=== PATIENT | female | born 1985 | race Caucasian/White ===

== ENCOUNTER → 2020-07-17 | Outpatient (CLI) | payer MEDICAID ==
[~2020-07-17] VITALS: Ht 165.1 cm; Wt 80.5 kg
[~2020-07-17] MED LIST: PLEASE ENTER ALLERGIES MC SCH; PLEASE ENTER HEIGHT AND WEIGHT MC SCH
[2020-07-17 11:14] LABS: BASOPHILS # (AUTO) 0.01 x10^3/uL (0-0.1); BASOPHILS % (AUTO) 0 % (0-1); EOSINOPHILS # (AUTO) 0.04 x10^3/uL (0-0.4); EOSINOPHILS % (AUTO) 1 % (1-7); LYMPHOCYTES # (AUTO) 1.43 x10^3/uL (1-3.4); LYMPHOCYTES % (AUTO) 17 % (22-44); MD NO; MEAN CORPUSCULAR HEMOGLOBIN 32.1 pg (27.0-34.8); MEAN CORPUSCULAR HGB CONC 32.9 g/dL (32.4-35.8); MEAN CORPUSCULAR VOLUME 97.6 fL (80-100); MEAN PLATELET VOLUME 8.3 fL (7.4-10.4); MONOCYTES # (AUTO) 0.52 x10^3/uL (0.2-0.8); MONOCYTES % (AUTO) 6 % (2-9); NEUTROPHILS # (AUTO) 6.37 x10^3/uL (1.8-6.8); NEUTROPHILS % (AUTO) 76 % (42-75); PLATELET COUNT 206 x10^3/uL (130-400); RED BLOOD COUNT 3.97 x10^6/uL (3.82-5.3); RED CELL DISTRIBUTION WIDTH 13.1 % (9.6-15.2)
[2020-07-17 11:20] LABS: MICROSCOPIC NOT IND
[2020-07-17 11:25] LABS: ALBUMIN 2.8 g/dL (3.4-5.0); ANION GAP 10 mmol/L (5-15); CALCIUM 8.6 mg/dL (8.5-10.1); CHLORIDE 112 mmol/L (98-107)
[2020-07-17 11:33] LABS: ALANINE AMINOTRANSFERASE 13 U/L (12-78); ALKALINE PHOSPHATASE 106 U/L (45-117); BILIRUBIN,TOTAL 0.5 mg/dL (0.2-1.0); CREATININE 0.48 mg/dL (0.55-1.02); TOTAL PROTEIN 6.6 g/dL (6.4-8.2)
== END | disposition home or self-care (01) ==
LOC: LDOP 10:29
PROVIDERS: ATTEND Obstetrics & Gynecology
DX: O60.03 Preterm labor without delivery, third trimester (principal); Z3A.32 32 weeks gestation of pregnancy
CPT/HCPCS: 36415; 80053; 81003; 82570; 84156; 84550; 85025; 87086

== ENCOUNTER → 2020-08-25 | Outpatient (CLI) | payer MEDICAID | END | disposition home or self-care (01) | LOC: STAR 08:32 | PROVIDERS: ATTEND Obstetrics & Gynecology | DX: Z01.812 Encounter for preprocedural laboratory examination (principal); Z20.828 Contact with and (suspected) exposure to other viral communicable diseases | CPT/HCPCS: 36415; 87635 ==

== ENCOUNTER 2020-08-30 05:30 | Inpatient (IN) | payer MEDICAID ==
[~2020-08-30] VITALS: Ht 165.1 cm; Wt 82.2 kg
[2020-08-30] MEDS ORDERED: NEWBORN KIT ONE ×2 (05:37→06:33)
[2020-08-30] MEDS ORDERED: METOCLOPRAMIDE 5 MG/ML, 2ML IV ONE (06:00)
[2020-08-30] MEDS ORDERED: LACTATED RINGERS 1,000 ML IVBOLUS ONE (06:00)
[2020-08-30] MEDS ORDERED: CEFAZOLIN PMX 1GM/50ML 50 ML IVPB ONE (06:00)
[2020-08-30] MEDS ORDERED: SODIUM CITRATE/CITRIC ACID 30 ML UDC PO ONE (06:00)
[2020-08-30 06:06] VITALS: BP 120/70
[2020-08-30 06:07] LABS: BASOPHILS % (AUTO) 1 % (0-1); EOSINOPHILS % (AUTO) 1 % (1-7); LYMPHOCYTES % (AUTO) 22 % (22-44); MEAN CORPUSCULAR HEMOGLOBIN 32.2 pg (27.0-34.8); MEAN CORPUSCULAR HGB CONC 33.8 g/dL (32.4-35.8); MEAN PLATELET VOLUME 9.5 fL (7.4-10.4); MONOCYTES % (AUTO) 8 % (2-9); NEUTROPHILS % (AUTO) 69 % (42-75); PLATELET COUNT 184 x10^3/uL (130-400); RED CELL DISTRIBUTION WIDTH 13.5 % (9.6-15.2)
[2020-08-30] MEDS ORDERED: METOCLOPRAMIDE 5 MG/ML, 2ML ONE (06:33)
[2020-08-30] MEDS ORDERED: OXYTOCIN 30U/ 0.9% NaCL 500ML 500 ML ONE (06:33)
[2020-08-30 06:52] LABS: MD NO
[2020-08-30] MEDS: LACTATED RINGERS 1,000 ML IV SCH ×8 (07:02→23:30)
[2020-08-30] MEDS ORDERED: FENTANYL PF 100 MCG/2ML ONE (07:09)
[2020-08-30] MEDS ORDERED: HYDROmorphone 2 MG/ML, 1ML ONE (07:09)
[2020-08-30] MEDS ORDERED: OXYTOCIN 10 UNITS/ML, 1ML ONE (07:09)
[2020-08-30] MEDS ORDERED: ONDANSETRON 2MG/ML, 2ML ONE (07:09)
[2020-08-30] MEDS ORDERED: CEFAZOLIN 1,000 MG ONE (07:09)
[2020-08-30] MEDS ORDERED: CARBOPROST TROMETHAMINE 250 MCG/ML, 1ML IM PRN (07:30)
[2020-08-30] MEDS ORDERED: METHYLERGONOVINE 0.2 MG/ML IM PRN (07:30)
[2020-08-30] MEDS ORDERED: ONDANSETRON 2MG/ML, 2ML IV PRN (07:30)
[2020-08-30] MEDS ORDERED: SIMETHICONE 80 MG CHEW TAB PO PRN (07:30)
[2020-08-30] MEDS ORDERED: IBUPROFEN 600 MG TABLET PO PRN (07:30)
[2020-08-30] MEDS ORDERED: MISOPROSTOL 200 MCG TABLET PR PRN (07:30)
[2020-08-30] MEDS ORDERED: ACETAMINOPHEN 325 MG TABLET PO PRN (07:30)
[2020-08-30] MEDS ORDERED: MISOPROSTOL 200 MCG TABLET ONE (07:57)
[2020-08-30] MEDS ORDERED: EPHEDRINE 50 MG/ML, 1ML ONE (08:18)
[2020-08-30] MEDS ORDERED: KETOROLAC 30 MG/1 ML ONE (08:18)
[2020-08-30] MEDS: PRENATAL VIT/IRON/FA 1 EACH TABLET PO SCH (09:00)
[2020-08-30] MEDS: OXYTOCIN 30U/ 0.9% NaCL 500ML 500 ML IV SCH ×2 (09:12→17:30)
[2020-08-30] MEDS ORDERED: OXYcodone 5 MG/5 ML ORAL.SOL UDC ONE (09:56)
[2020-08-30] MEDS ORDERED: OXYcodone 5 MG/5 ML ORAL.SOL UDC PO PRN (10:00)
[2020-08-30 11:00] VITALS: BP 123/79
[2020-08-30] MEDS: KETOROLAC 30 MG/1 ML IV SCH ×2 (14:08→20:37)
[2020-08-30] MEDS: HYDROcodone/APAP 5/325 TABLET PO PRN ×3 (14:11→22:16)
[2020-08-30 16:16] LABS: BASOPHILS % (AUTO) 0 % (0-1); EOSINOPHILS % (AUTO) 0 % (1-7); LYMPHOCYTES % (AUTO) 18 % (22-44); MEAN CORPUSCULAR HEMOGLOBIN 32.3 pg (27.0-34.8); MEAN CORPUSCULAR HGB CONC 33.7 g/dL (32.4-35.8); MEAN PLATELET VOLUME 9.4 fL (7.4-10.4); MONOCYTES % (AUTO) 6 % (2-9); NEUTROPHILS % (AUTO) 76 % (42-75); PLATELET COUNT 141 x10^3/uL (130-400); RED BLOOD COUNT 3.49 x10^6/uL (3.82-5.3); RED CELL DISTRIBUTION WIDTH 13.2 % (9.6-15.2)
[2020-08-30 16:18] LABS: MD NO
[2020-08-30 17:30] VITALS: BP 113/73
[2020-08-30 19:30] VITALS: BP 113/71
[2020-08-30] MEDS: DOCUSATE 100 MG CAPSULE PO PRN (22:16)
[2020-08-31] VITALS: BP 105/68
[2020-08-31] MEDS: HYDROcodone/APAP 5/325 TABLET PO PRN ×4 (02:50→21:08)
[2020-08-31] MEDS: KETOROLAC 30 MG/1 ML IV SCH ×2 (02:50→08:31)
[2020-08-31] MEDS: LACTATED RINGERS 1,000 ML IV SCH ×9 (03:30→23:30)
[2020-08-31] MEDS: OXYTOCIN 30U/ 0.9% NaCL 500ML 500 ML IV SCH ×3 (03:30→23:30)
[2020-08-31 04:24] VITALS: BP 108/70
[2020-08-31] MEDS: DOCUSATE 100 MG CAPSULE PO PRN ×2 (07:04→21:08)
[2020-08-31 07:38] VITALS: BP 109/70
[2020-08-31] MEDS: PRENATAL VIT/IRON/FA 1 EACH TABLET PO SCH (08:36)
[2020-08-31] MEDS: IBUPROFEN 600 MG TABLET PO PRN ×2 (14:11→21:08)
[2020-08-31 21:20] VITALS: BP 112/75
[2020-09-01] MEDS: IBUPROFEN 600 MG TABLET PO PRN ×2 (04:32→10:28)
[2020-09-01] MEDS ORDERED: MEASLES,MUMPS&RUBELLA VACC/PF 0.5 ML SQ-VACC ONE ×2 (06:30→11:15)
[2020-09-01] MEDS: LACTATED RINGERS 1,000 ML IV SCH ×3 (07:00→09:30)
[2020-09-01 07:35] VITALS: BP 147/89
[2020-09-01] MEDS: PRENATAL VIT/IRON/FA 1 EACH TABLET PO SCH ×2 (07:47→07:49)
[2020-09-01] MEDS: DOCUSATE 100 MG CAPSULE PO PRN (07:47)
[2020-09-01] MEDS: OXYTOCIN 30U/ 0.9% NaCL 500ML 500 ML IV SCH (09:30)
[2020-09-01] MEDS ORDERED: HYDR-3240 PO (10:50)
[2020-09-01] MEDS ORDERED: IBUP-1222 PO (10:50)
[2020-09-01] MEDS ORDERED: SENN-190 PO (10:50)
== END 2020-09-01 12:08 | disposition home or self-care (01) | DRG 788 ==
LOC: LDIP 05:30 → 2NW 10:19
PROVIDERS: ADMIT Obstetrics & Gynecology; ATTEND Obstetrics & Gynecology
PROC: 10D00Z1 Extraction of Products of Conception, Low, Open Approach (ICD-10-PCS; principal; 2020-08-30)
DX: O13.4 Gestational [pregnancy-induced] hypertension without significant proteinuria, complicating childbirth (principal); O09.523 Supervision of elderly multigravida, third trimester; O69.81X0 Labor and delivery complicated by cord around neck, without compression, not applicable or unspecified; Z37.0 Single live birth; Z3A.39 39 weeks gestation of pregnancy; O32.2XX0 Maternal care for transverse and oblique lie, not applicable or unspecified
CPT/HCPCS: 36415; 85025; 86592; 86850; 86900; G0378; J0690; J1170; J1885; J2405; J3010; J2590; J2765; J7120